=== PATIENT | male | born 1985 | race Caucasian/White ===

== ENCOUNTER 2023-03-05 09:03 | Emergency (ER) | payer OTHER, MEDICAID, SELFPAY ==
[2023-03-05 09:06] VITALS: BP 121/76; PULSE 89; RESP 16; TEMP 36.8; O2SAT 99; BMI 22.9
--- NOTE | 2023-03-05 09:11 | DI.RAD.S_ITS ---
PROCEDURE: XR RIBS LT MIN 3V W CXR1V INDICATIONS: fall mountain biking, SOB, pain on L ribs r/o pneumo TECHNIQUE: 2 views of the left ribs were acquired, along with a single view chest. COMPARISON: None. FINDINGS: Surgical changes and devices: None. Bones and chest wall: Cortical irregularity involving left anterior 6 rib is seen suggestive of minimally displaced rib fracture which corresponds to patient's reported area of pain. No other rib fracture is identified. No suspicious bony lesions. Overlying soft tissues appear unremarkable. Lungs and pleura: No pleural effusions or pneumothorax. Lungs appear clear. Mediastinum: Mediastinal contours appear normal. Heart size is normal. IMPRESSION: Subtle minimally displaced left anterior 6th rib fracture. No acute cardiopulmonary pathology. Dictated by: Lane Srinivasan M.D. on 03/05/2023 at 9:25 Approved by: Lane Srinivasan M.D. on 03/05/2023 at 9:27
--- NOTE | 2023-03-05 09:36 | ED.FALL ---
HPI - Fall General Chief Complaint: Fall Stated Complaint: polssible broken rib, sent by [employer] [place] Time Seen by Provider: 03/05/23 09:35 Source: patient and RN notes reviewed Mode of arrival: Ambulatory Limitations: no limitations History of Present Illness HPI Narrative: This is a 37-year-old male who was mountain biking on February 24, he states he took a fall his left arm was behind him and he landed on large tree root on the left side of his chest. He states it was painful but got better in a day or 2 he did have a little bit of swelling and bruising at the site that resolved after several days. States later in the week he was rolling over in bed felt sort of a pop and sudden pain at that location which has been persistently much more painful. Patient states no shortness of breath pain still present not quite as intense as when he felt the pop. Does have a history of prior broken ribs on both sides in the past in his had a pneumothorax on the left secondary to traumatic injury in the past. Denies any other injuries. States he did not hit his head no neck or back pain, no shortness of breath currently. He denies any lightheadedness passing out. Denies any other issues. Patient states no new bruising or skin changes. Related Data Previous Rx's Medication Instructions Recorded ibuprofen 800 mg tablet 800 mg PO Q8H PRN pain #60 tabs 06/29/21 lidocaine 5 % topical patch 1 patch topical DAILY #30 ea 06/29/21 Allergies Allergy/AdvReac Type Severity Reaction Status Date / Time acetaminophen [From Percocet] AdvReac Mild Vomiting Verified 03/04/23 16:50 Opioids - Morphine Analogues AdvReac Mild Vomiting Verified 03/04/23 16:50 oxycodone [From Percocet] AdvReac Mild Vomiting Verified 03/04/23 16:50 Review of Systems Review of Systems ROS Unobtainable: All systems reviewed & are unremarkable except as noted in HPI and below Patient History Medical History (Updated 03/05/23 @ 09:43 by Shanita Sinclair DO) Carpal tunnel syndrome (~2009) Contusion of rib on right side Depression PTSD (post-traumatic stress disorder) (~2015) Wears glasses Surgical History (Updated 07/16/21 @ 21:24 by Jaci York) Anesthesia H/O tooth extraction (~2006) History of foot surgery (~2014) History of right knee surgery (~2017) Social History Smoking Status: Former smoker Smoking Status: Former smoker Exam Narrative Exam Narrative: GEN: Patient appears in mild distress. HEAD: No evidence of trauma, no raccoon/Irene sign. NECK: Nontender, painless range of motion, trachea midline Negative Nexus criteria, there is no midline line tenderness, distracting injury, altered mental status, neuro deficit, recent EtOH. EYES: PERRLA, EOMI ENT: External inspection normal, trachea is midline, Nares are clear, no septal hematoma, no dental or oral injury, airway is normal and with normal occlusion, No bony tenderness RESP: Chest is is tender over the left lateral chest. No obvious deformity. And has symmetric movement, no ecchymosis, breath sounds are normal no crackles, wheezes or rales, no ecchymosis or skin changes. CVS: Heart sounds are normal, no murmur noted, No JVD. ABG/GI: Nontender, soft, normal bowel sounds, no distention, no organomegaly. Neg pelvic rock NEURO: Oriented AOx3, neuro is grossly intact, sensation and motor is normal all 4 extremities moving, cranial nerves II through XII are intact, GCS is 15 PSYCH: Normal mood and affect SKIN: Intact, warm and dry, no crepitus and without decubitus BACK: No CVA tenderness, no vertebral tenderness, no step-off's, no crepitus EXT: Atraumatic, normal range of motion of extremities, normal gait. SKIN: No rash, no erythema, no ecchymosis. Initial Vital Signs Initial Vital Signs: Vital Signs Temperature 98.3 F 03/05/23 09:06 Pulse Rate 89 03/05/23 09:06 Respiratory Rate 16 03/05/23 09:06 Blood Pressure 121/76 03/05/23 09:06 Pulse Oximetry 99 03/05/23 09:06 Oxygen Delivery Method Room Air 03/05/23 09:06 Course Orders Ordered: ED Orders 03/05/23 09:11 XR ribs LT min 3V w CXR1V Stat Vital Signs Vital signs: Vital Signs - 8 hr 03/05/23 09:06 Temperature 98.3 F Pulse Rate 89 Respiratory Rate 16 Blood Pressure 121/76 Pulse Oximetry 99 Oxygen Delivery Method Room Air MDM - Fall Imaging Data Chest x-ray: Radiologist's Impression: Close Ribs X-Ray (Signed) Lane Srinivasan - 03/05/23 Ribs X-Ray (Signed) Brennon Smith - 06/29/21 Launch?[address] [address] XRay Report Signed Patient: Tony Espino MR#: [id number] : 1985 Acct:[id number] Age/Sex: 37 / M Date of Service: 03/05/23 Loc: ED Accession Number: [id number] ?? Procedure: XR ribs LT min 3V w CXR1V Ordering Provider: Shanita Sinclair D.O. PROCEDURE:? XR RIBS LT MIN 3V W CXR1V ? INDICATIONS:? fall mountain biking, SOB, pain on L ribs r/o pneumo ? TECHNIQUE:? 2 views of the left ribs were acquired, along with a single view chest.? ? COMPARISON:? None. ? FINDINGS:? ? Surgical changes and devices:? None.? ? Bones and chest wall:? Cortical irregularity involving left anterior 6 rib is seen suggestive of minimally displaced rib fracture which corresponds to patient's reported area of pain.? No other rib fracture is identified.? No suspicious bony lesions.? Overlying soft tissues appear unremarkable.? ? Lungs and pleura:? No pleural effusions or pneumothorax.? Lungs appear clear.? ? Mediastinum:? Mediastinal contours appear normal.? Heart size is normal.? ? IMPRESSION:? Subtle minimally displaced left anterior 6th rib fracture.? No acute cardiopulmonary pathology. ? ? Dictated by: Lane Srinivasan M.D. on 03/05/2023 at 9:25 ? ? Approved by: Lane Srinivasan M.D. on 03/05/2023 at 9:27?? [facility] Narrative Medical decision making narrative: This is a 37-year-old male who was in a mountain biking accident on the 24 of February he states symptoms he had pain in the left rib region very localized for about 2 or 3 days sort of improved in the in the other morning who is rolling over in bed felt a pop and had increased pain at that location again. Patient states pain has been much stronger than it was before. He denies any new injuries. He denies any shortness of breath. He has had a history of rib fractures and had prior pneumothorax in the past. Patient's chest x-ray does appear to have a 6 very rib fracture consistent with his physical exam and reported symptoms. No signs of pneumothorax appreciated today. Patient denies any other injuries and exam overall is reassuring. Patient prefers incentive spirometer states he has 1 that he is used at home before. Defers anything additional for pain. All questions answered. Discharge Plan Departure Patient Disposition: Home Clinical Impression: Closed fracture of rib of left side Instructions: DI for Rib Fracture Activity Restrictions/Additional Instructions: You do have a fracture on the left 6th rib seen on your imaging today. You can take Tylenol up to a 1000 mg every 6 hours and/or ibuprofen up to 800 mg every 8 hours as needed for pain. Please return for new or worsening chest pain, shortness of breath, lightheadedness or passing out, new bruising or other skin changes or other new or concerning changes. Prescriptions: No Action lidocaine 5 % adhesive patch,medicated 1 patch topical DAILY Qty: 30 0RF Rx Instructions: leave on most painful area for up to 12 hrs ibuprofen 800 mg tablet 800 mg PO Q8H PRN (Reason: pain) Qty: 60 0RF Referrals: Ena Jacobs PA-C [Primary Care Provider] - Stand Alone Forms: Patient Portal/API
== END 2023-03-05 09:49 | disposition home or self-care (01) ==
PROVIDERS: Emergency Provider Emergency Medicine; PCP Physician Assistant
DX: S22.32XA Fracture of one rib, left side, initial encounter for closed fracture (principal); V18.0XXA Pedal cycle driver injured in noncollision transport accident in nontraffic accident, initial encounter; Y93.55 Activity, bike riding
CPT/HCPCS: 71101; 99282; 99284

== ENCOUNTER 2024-04-01 00:59 | Emergency (ER) | payer OTHER, MEDICAID, SELFPAY ==
--- NOTE | 2024-04-01 01:06 | ED_ITS ---
HPI - Skin/Abscess/Foreign Bdy General Chief complaint: Head Injury Stated complaint: head injury Time Seen by Provider: 04/01/24 01:01 History of Present Illness HPI narrative: 39-year-old male presents for evaluation of head injury and possible need for sutures. Patient states that he was working on a car when a struck broke off and struck him in the head. He had brief loss of consciousness. He was taken via air to [facility] where a CT was performed, reportedly negative. He states that a large trauma came in and he was told that he would have to wait several hours for sutures to be done. He decided that he did not want to wait and so he came to our emergency department to get sutures for his forehead wound. Last tetanus update less than 3 years ago Related Data Home Medications Medication Instructions Recorded Confirmed cyclobenzaprine 5 mg tablet See Rx Instructions PO TID painful 03/09/24 muscle spasms duloxetine 20 mg capsule,delayed 20 mg PO ONCE 03/09/24 03/09/24 release sprinkle Allergies Allergy/AdvReac Type Severity Reaction Status Date / Time acetaminophen [From Percocet] AdvReac Mild Vomiting Verified 04/01/24 01:09 Opioids - Morphine Analogues AdvReac Mild Vomiting Verified 04/01/24 01:09 oxycodone [From Percocet] AdvReac Mild Vomiting Verified 04/01/24 01:09 Patient History Medical History PTSD (post-traumatic stress disorder) (~2015) Depression Carpal tunnel syndrome (~2009) Surgical History Anesthesia History of foot surgery (~2014) History of right knee surgery (~2016) H/O tooth extraction (~2006) Social History Smoking Status: Current every day smoker Smoking Status: Current every day smoker Exam Initial Vital Signs Initial Vital Signs: Vital Signs Temperature 97.4 F L 04/01/24 01:09 Pulse Rate 78 04/01/24 01:09 Respiratory Rate 17 04/01/24 01:09 Blood Pressure 152/99 H 04/01/24 01:09 Pulse Oximetry 99 04/01/24 01:09 Oxygen Delivery Method Room Air 04/01/24 01:09 Const: Awake, alert, no acute distress, nontoxic appearing Head: Contusion center forehead, No deformity noted Skin: Warm, Dry, 3cm horizontal laceration center forehead, superficial to deeper depth Neuro: AO x3, CN II-XII grossly intact, moves all extremities Procedures Laceration Repair Laceration 1: Site: face Size (cm): 3 Description: linear Depth: simple, single layer Local Anesthetic: lidocaine 1% and with epi Amount of anesthesia used (mL): 2 Pre-repair: wound explored and irrigated extensively Skin layer closed with: nylon Skin layer suture size: 5-0 Number of sutures: 4 Technique: simple, interrupted Course Orders Ordered: Discontinued Medications Lidocaine/Epinephrine (Lidocaine 1% W/Epi) 4 ml INJ INTRA-OP ONE Stop: 04/01/24 01:07 Last Admin: 04/01/24 01:10 Dose: 4 ml Documented By: TYSHAWN Vital Signs Vital signs: Vital Signs - 8 hr 04/01/24 01:09 Temperature 97.4 F L Pulse Rate 78 Respiratory Rate 17 Blood Pressure 152/99 H Pulse Oximetry 99 Oxygen Delivery Method Room Air MDM - Skin/Abscess/Foreign Bdy MDM Narrative Medical decision making narrative: Patient presenting for sutures for his forehead laceration. Reports that he has already had a negative CT at outside hospital. Wound cleaned, repaired per procedure note. Discharge Plan Departure Patient Disposition: Home Clinical Impression: Forehead laceration Instructions: DI for Laceration Repair -- Simple Activity Restrictions/Additional Instructions: Expect that your forehead and the area under your eyes will be bruised tomorrow. Apply ice to areas of swelling. Take Tylenol and ibuprofen as needed for pain. Sutures will need to be removed in 3-5 days. If you notice redness, drainage, abnormal swelling please return for repeat evaluation. Prescriptions: No Action duloxetine 20 mg capsule, delayed rel sprinkle 20 mg PO ONCE cyclobenzaprine 5 mg tablet See Rx Instructions PO TID Rx Instructions: 1 to 2 tabs orally three times a day; Do not drive if taking this medication. Referrals: Ena Jacobs PA-C [Primary Care Provider] - Stand Alone Forms: Patient Portal/API
[2024-04-01 01:09] VITALS: BP 152/99; PULSE 78; RESP 17; TEMP 36.3; O2SAT 99; BMI 23.6
[2024-04-01] MEDS: LIDOCAINE 1% W/EPI 4 ML INJ (01:10)
--- NOTE | 2024-04-01 01:27 | PC.NURSE ---
patient has a well approximated 3cm laceration on center of forehead. Cleansed with NS and patient has minimal bleeding. Dr. Pineda now in room.
== END 2024-04-01 01:46 | disposition home or self-care (01) ==
PROVIDERS: Emergency Provider Emergency Medicine; PCP Physician Assistant
DX: S01.81XA Laceration without foreign body of other part of head, initial encounter (principal); W20.8XXA Other cause of strike by thrown, projected or falling object, initial encounter
CPT/HCPCS: 12013; 99282; 99283

== ENCOUNTER 2024-08-03 18:36 | Emergency (ER) | payer OTHER, MEDICAID, SELFPAY ==
[2024-08-03 18:44] VITALS: BP 134/76; PULSE 88; RESP 16; TEMP 36.9; O2SAT 99; BMI 24.0
--- NOTE | 2024-08-03 18:55 | DI.RAD.S_ITS ---
PROCEDURE: XR HAND LT MIN 3V INDICATIONS: fall/injury TECHNIQUE: 3 views of the hand(s) acquired. COMPARISON: None. FINDINGS: Bones: No fractures or dislocations. Carpal bones are normally aligned. No suspicious bony lesions. Soft tissues: Significant dorsal soft tissue swelling is seen. No suspicious soft tissue calcifications. IMPRESSION: Dorsal left hand soft tissue swelling. No gross acute left hand fracture or dislocation. Dictated by: Lane Srinivasan M.D. on 08/03/2024 at 19:23 Approved by: Lane Srinivasan M.D. on 08/03/2024 at 19:23
--- NOTE | 2024-08-03 18:55 | DI.RAD.S_ITS ---
PROCEDURE: XR WRIST LT MIN 3V INDICATIONS: fall/injury TECHNIQUE: 4 views of the wrist were acquired. COMPARISON: [facility] ([place]), CR, XR WRIST LT MIN 3V, 11/27/2023, 13:50. FINDINGS: Bones: No fractures or dislocations. No suspicious bony lesions. Soft tissues: No suspicious soft tissue calcifications. IMPRESSION: No gross acute left wrist fracture or dislocation. Dictated by: Lane Srinivasan M.D. on 08/03/2024 at 19:23 Approved by: Lane Srinviasan M.D. on 08/03/2024 at 19:24
[2024-08-03 23:01] VITALS: BP 139/84; PULSE 72; RESP 18; TEMP 36.9; O2SAT 95
--- NOTE | 2024-08-04 01:26 | PC.NURSE ---
called pt for room, no answer unable to locate pt in waiting room area
--- NOTE | 2024-08-04 01:53 | ED_ITS ---
HPI - Fall General Chief Complaint: Fall Stated Complaint: Fall, hand and back injury Time Seen by Provider: 08/04/24 02:18 Mode of arrival: Ambulatory History of Present Illness HPI Narrative: 39-year-old male states that he was working this afternoon and fell backwards, hands raised upright, smacked the back of his left hand onto flat surface, also had exacerbation of this chronic left back pain. No numbness or tingling to lower extremities. No incontinence of urine or stool. No head injuries. No neck pain. No chest abdomen and pelvis pain. He has not been taking any medications. Regarding his back pain knee as apparently had some kind of injury in [place] in the distant past, treated with various medications, apparently not any surgical interventions, subsequently had follow up with [facility] in [place], reports CT scanning of the lumbar spine, consultation with Neurosurgery, no injections although this had been discussed, no MRI study, now planning to switch his primary care provider and pursue alternate neurosurgery consultation. Related Data Home Medications Medication Instructions Recorded Confirmed cyclobenzaprine 5 mg tablet See Rx Instructions PO TID painful 03/09/24 04/06/24 muscle spasms duloxetine 20 mg capsule,delayed 20 mg PO ONCE 03/09/24 04/06/24 release sprinkle Previous Rx's Medication Instructions Recorded methocarbamol 500 mg tablet 500 mg PO TID 7 days #21 tabs 08/04/24 naproxen 500 mg tablet 500 mg PO BID 7 days #14 tabs 08/04/24 Allergies Allergy/AdvReac Type Severity Reaction Status Date / Time acetaminophen [From Percocet] AdvReac Mild Vomiting Verified 04/06/24 11:38 Opioids - Morphine Analogues AdvReac Mild Vomiting Verified 04/06/24 11:38 oxycodone [From Percocet] AdvReac Mild Vomiting Verified 04/06/24 11:38 Review of Systems Review of Systems Narrative: see HPI Patient History Medical History PTSD (post-traumatic stress disorder) (~2015) Depression Carpal tunnel syndrome (~2009) Surgical History Anesthesia History of foot surgery (~2014) History of right knee surgery (~2016) H/O tooth extraction (~2006) Social History Smoking Status: Current every day smoker Smoking Status: Current every day smoker tobacco type: cigarettes Exam Narrative Exam Narrative: GENERAL: Well-developed patient, in mild distress. HEAD: Atraumatic. Normocephalic. EYES: Pupils equal round and reactive. Extraocular motions intact. No scleral icterus. No injection or drainage. ENT: Nose without bleeding, purulent drainage. Throat without erythema, tonsillar hypertrophy or exudate. Airway patent. NECK: Trachea midline. Non tender CARDIOVASCULAR: Regular rate and rhythm without murmurs, gallops, or rubs. RESPIRATORY: Clear to auscultation. Breath sounds equal bilaterally. No wheezes, rales, or rhonchi. GASTROINTESTINAL: Abdomen soft, non-tender, nondistended. EXTREMITIES: Swelling to dorsal aspect of left hand. Can move fingers, limited flexion. No lacerations or abrasion. Mild tenderness also to left wrist without gross deformity. BACK: Left mid lumbar paraspinous muscle tenderness with some spasm, no midline lumbar spine tenderness however mid upper or lower lumbar, nor thoracic. No flank area tenderness or bruising. No skin changes or redness or warmth. NEURO: AOx3. Motor functions grossly nonfocal. Straight leg raise 45-degrees bilaeral when supine, no increased back pain or any leg pain symptoms SKIN: No rash or erythema of visible areas Initial Vital Signs Initial Vital Signs: Vital Signs Temperature 98.4 F 08/03/24 18:44 Pulse Rate 88 08/03/24 18:44 Respiratory Rate 16 08/03/24 18:44 Blood Pressure 134/76 08/03/24 18:44 Pulse Oximetry 99 08/03/24 18:44 Oxygen Delivery Method Room Air 08/03/24 18:44 Course Orders Ordered: Discontinued Medications Methocarbamol (Methocarbamol 500 Mg Tablet) 500 mg PO NOW ONE Stop: 08/04/24 02:08 Last Admin: 08/04/24 02:16 Dose: 500 mg Documented By: TYSHAWN Naproxen (Naproxen 250 Mg Tablet) [facility] Naproxen (Naproxen 250 Mg Tablet) 500 mg PO NOW ONE Stop: 08/04/24 02:19 Last Admin: 08/04/24 02:24 Dose: 500 mg Documented By: TYSHAWN Vital Signs Vital signs: Vital Signs - 8 hr 08/03/24 18:44 08/03/24 23:01 Temperature 98.4 F 98.5 F Pulse Rate 88 72 Respiratory Rate 16 18 Blood Pressure 134/76 139/84 Pulse Oximetry 99 95 Oxygen Delivery Method Room Air Room Air MDM - Fall Imaging Data Extremity x-ray #1: Radiologist's Impression: Close Hand X-Ray (Signed) Lane Srinivasan - 08/03/24 Wrist X-Ray (Signed) Lane Srinivasan - 08/03/24 Launch?[address] [address] XRay Report Signed Patient: Tony Espino MR#: [id number] : 1985 Acct:[id number] Age/Sex: 39 / M Date of Service: 08/03/24 Loc: ED Accession Number: [id number] Procedure: XR hand LT min 3V Ordering Provider: Davon Brandon MD PROCEDURE: XR HAND LT MIN 3V INDICATIONS: fall/injury TECHNIQUE: 3 views of the hand(s) acquired. COMPARISON: None. FINDINGS: Bones: No fractures or dislocations. Carpal bones are normally aligned. No suspicious bony lesions. Soft tissues: Significant dorsal soft tissue swelling is seen. No suspicious soft tissue calcifications. IMPRESSION: Dorsal left hand soft tissue swelling. No gross acute left hand fracture or dislocation. Dictated by: Lane Srinivasan M.D. on 08/03/2024 at 19:[address]: [address] Srinivasan M.D. on 08/03/2024 at 19:23 Extremity x-ray #2: Radiologist's Impression: Close Hand X-Ray (Signed) Lane Srinivasan - 08/03/24 Wrist X-Ray (Signed) Lane Srinivasan - 08/03/24 Launch?[address] [address] XRay Report Signed Patient: Tony Espino MR#: [id number] : 1985 Acct:[id number] Age/Sex: 39 / M Date of Service: 08/03/24 Loc: ED Accession Number: [id number] Procedure: XR wrist LT min 3V Ordering Provider: Davon Brandon MD PROCEDURE: XR WRIST LT MIN 3V INDICATIONS: fall/injury TECHNIQUE: 4 views of the wrist were acquired. COMPARISON: [facility] ([place]), CR, XR WRIST LT MIN 3V, 11/27/2023, 13:50. FINDINGS: Bones: No fractures or dislocations. No suspicious bony lesions. Soft tissues: No suspicious soft tissue calcifications. IMPRESSION: No gross acute left wrist fracture or dislocation. Dictated by: Lane Srinivasan M.D. on 08/03/2024 at 19:[address]: [address] Srinivasan M.D. on 08/03/2024 at 19:24 [facility] Narrative Medical decision making narrative: 39-year-old male with left dorsal hand and wrist pain after fall work injury, exacerbation of left lumbar chronic back pain. Some tenderness to mid lumbar area, but not in the midline region. We discussed CT lumbar spine imaging, declined for now. No MRI lumbar spine imaging available now, no neuro deficits obvious. Left Velcro wrist splint. Oral naproxen. Oral Robaxin dispensed now, to take once he gets home as he is driving. Prescriptions for naproxen and Robaxin sent to home [facility] pharmacy. Follow up with new PCP as planned. Follow up with new Neurosurgery as planned. Contact information also provided for local spine surgeon Dr. Jean if needed, though he might require referral from primary care. Return precautions discussed. Discharge Plan Departure Patient Disposition: Home Clinical Impression: Contusion of hand, left, Sprain and strain of left wrist, Lumbar strain Activity Restrictions/Additional Instructions: Fall and work injury report earlier today, with subsequent dorsal left hand swelling and pain, also left wrist pain. X-rays of the left hand and wrist negative for x-rays per radiology reports at this time. Left wrist placed in splint to immobilize wrist and hand areas. Keep elevated. Consider local cold/ice application to reduce the swelling. Consider use of naproxen anti- inflammatory pain medication, 1st dose in the emergency department, further doses in your pharmacy were sent electronically. You describe chronic low back pain ongoing, in process of change of primary care provider, and likely change in possible neurosurgical consultation, most recently having been evaluated at [facility], reporting prior CT imaging lumbar spine but no MRI imaging lumbar spine. No neurosurgical intervention so far. Unfortunately with this fall you had increased low back pain. On examination however you do not seem to have any tenderness along the midline at this time. We did discuss CT imaging tonight, hold for now. You seemed to have tenderness mid lumbar paraspinous musculature, not in the midline. Trial of muscle relaxant for now for lumbar strain. First dose Robaxin/methocarbamol now dispensed, to take once your at-home since your driving, then further as needed sent to your pharmacy on [facility] for pickup tomorrow. Recheck with your new primary care provider. Contact information also provided for local spine surgeon in [place] Dr. Jean if needed, though you might require primary care provider referral. Return earlier to this/nearest emergency department for any change worsening symptoms or any concerns prior Prescriptions: New methocarbamol 500 mg tablet 500 mg PO TID 7 Days Qty: 21 0RF naproxen 500 mg tablet 500 mg PO BID 7 Days Qty: 14 0RF No Action duloxetine 20 mg capsule, delayed rel sprinkle 20 mg PO ONCE cyclobenzaprine 5 mg tablet See Rx Instructions PO TID Rx Instructions: 1 to 2 tabs orally three times a day; Do not drive if taking this medication. Referrals: Bryan Jean MD [Physician] - Sidra Denise DO [Primary Care Provider] - Stand Alone Forms: Patient Portal/API/Survey
[2024-08-04] MEDS: methocarbamoL 500 MG TABLET PO (02:16)
[2024-08-04 02:24] VITALS: BP 134/91; PULSE 78; RESP 18; O2SAT 99
[2024-08-04] MEDS: NAPROXEN 250 MG TABLET 500 MG PO (02:24)
== END 2024-08-04 02:26 | disposition home or self-care (01) ==
PROVIDERS: Emergency Provider Emergency Medicine; PCP Family Medicine
DX: S60.222A Contusion of left hand, initial encounter (principal); S66.912A Strain of unspecified muscle, fascia and tendon at wrist and hand level, left hand, initial encounter; S63.502A Unspecified sprain of left wrist, initial encounter; S39.012A Strain of muscle, fascia and tendon of lower back, initial encounter; W01.198A Fall on same level from slipping, tripping and stumbling with subsequent striking against other object, initial encounter
CPT/HCPCS: 73110; 73130; 99283

== ENCOUNTER 2024-09-02 18:24 | Emergency (ER) | payer OTHER, SELFPAY ==
[2024-09-02] VITALS (9 sets, daily range): BP systolic 142–162; BP diastolic 94–103; PULSE 73–104; RESP 16–18; TEMP 36.9; O2SAT 97–99; BMI 24.3
--- NOTE | 2024-09-02 21:50 | ED.UPPEXIN ---
HPI - Extremity Injury (Upper) General Chief Complaint: Extremity Injury, Upper Stated Complaint: Returning; L Hand Injury Time Seen by Provider: 09/02/24 20:55 History of Present Illness HPI narrative: 39-year-old right-hand dominant male presents for evaluation of left hand weakness. Patient was seen in the emergency department 08/04 after injuring his left hand. He underwent x-ray imaging, which was negative. He states that as the month has progressed his left hand has become weaker. 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 He says he feels like there is something swollen between his index and middle finger knuckles on the left-hand side. Reports a tingling/numbness sensation in the tips of his thumb, index, middle fingers. Related Data Home Medications Medication Instructions Recorded Confirmed cyclobenzaprine 5 mg tablet See Rx Instructions PO TID painful 03/09/24 04/06/24 muscle spasms duloxetine 20 mg capsule,delayed 20 mg PO ONCE 03/09/24 04/06/24 release sprinkle Allergies Allergy/AdvReac Type Severity Reaction Status Date / Time acetaminophen [From Percocet] AdvReac Mild Vomiting Verified 04/06/24 11:38 Opioids - Morphine Analogues AdvReac Mild Vomiting Verified 04/06/24 11:38 oxycodone [From Percocet] AdvReac Mild Vomiting Verified 04/06/24 11:38 Patient History Medical History PTSD (post-traumatic stress disorder) (~2015) Depression Carpal tunnel syndrome (~2009) Surgical History Anesthesia History of foot surgery (~2014) History of right knee surgery (~2016) H/O tooth extraction (~2006) Social History Smoking Status: Current every day smoker Smoking Status: Current every day smoker tobacco type: cigarettes Exam Initial Vital Signs Initial Vital Signs: Vital Signs Temperature 98.4 F 09/02/24 18:31 Pulse Rate 104 H 09/02/24 18:31 Respiratory Rate 16 09/02/24 18:31 Blood Pressure 162/103 H 09/02/24 18:31 Pulse Oximetry 98 09/02/24 18:31 Oxygen Delivery Method Room Air 09/02/24 18:31 Const: Awake, alert, no acute distress, nontoxic appearing MSK: Atraumatic, dipper operator strength L hand decreased compared to L hand. Unable to fully spread L fingers. Able to flex/extend all fingers equally. Capillary refill <2 seconds. No obvious swelling present Skin: Warm, Dry, intact, no rashes Neuro: AO x3, CN II-XII grossly intact, Bicep/tricep strength in bilateral arms 5/5, equal Course Orders Ordered: ED Orders 09/02/24 21:49 XR hand LT min 3V Stat Vital Signs Vital signs: Vital Signs - 8 hr 09/02/24 23:30 Pulse Rate 80 Respiratory Rate 16 Blood Pressure 142/99 H Pulse Oximetry 98 [facility] - Extremity Injury (Upper) Imaging Data Extremity x-ray #1: Radiologist's Impression: PROCEDURE: XR HAND LT MIN 3V INDICATIONS: L HAND INJ 1 MO AGO, WORSENING PAIN TECHNIQUE: 3 views of the hand(s) acquired. COMPARISON: [facility], , XR HAND LT MIN 3V, 08/03/2024, 18:58. FINDINGS: Bones: No fractures or dislocations. Carpal bones are normally aligned. No suspicious bony lesions. Soft tissues: No suspicious soft tissue calcifications. IMPRESSION: No acute left hand fracture or dislocation. No signs of healing fractures. No gross soft tissue abnormalities. Dictated by: Lane Srinivasan M.D. on 09/02/2024 at 22:42 Appro[address] by: Lane Srinivasan M.D. on 09/02/2024 at 22:43 [facility] Narrative Medical decision making narrative: Injury to left-hand 1 month ago, gradually worsening weakness and decreased dipper operator strength. On exam patient does have decreased dipper operator strength in the left hand compared to the right hand. Seems peripheral in etiology - isolated to beyond the wrist. He does have the ability to flex and extend all of his fingers, however fine motor seems to be somewhat decreased on the left-hand side compared to the right-hand side. Capillary refill less than 2 seconds in all fingers and equal to the right-hand. Repeat x-ray shows no acute findings. Patient was concerned that there may be something swollen on the dorsum of his left hand, however I do not appreciate any abnormal masses, lesions, or other abnormalities. Case discussed with hand surgery resident Dr. Doss at [facility]. She states that patient can follow up outpatient in their clinic. Patient states that under no circumstances is he going to [facility] as ?I do not trust them?. He requested a more local referral. Options are limited in [place], but the number to local orthopedic surgery was given to patient for follow up if he desires. Patient was counseled that he should follow up with a hand surgeon for further monitoring of his hand weakness Discharge Plan Departure Patient Disposition: Home Clinical Impression: Left hand weakness Instructions: DI for Hand Injury Activity Restrictions/Additional Instructions: Wear your wrist brace for stabilization. Follow up with ortho hand for your continued hand weakness. Prescriptions: No Action duloxetine 20 mg capsule, delayed rel sprinkle 20 mg PO ONCE cyclobenzaprine 5 mg tablet See Rx Instructions PO TID Rx Instructions: 1 to 2 tabs orally three times a day; Do not drive if taking this medication. Referrals: Jens Acosta MD [Physician] - Sidra Denise DO [Primary Care Provider] - Stand Alone Forms: Patient Portal/API/Survey
== END 2024-09-02 23:55 | disposition home or self-care (01) ==
PROVIDERS: Emergency Provider Emergency Medicine; PCP Family Medicine
DX: R53.1 Weakness (principal); R20.0 Anesthesia of skin; R20.2 Paresthesia of skin
CPT/HCPCS: 73130; 99281; 99283

== ENCOUNTER 2024-09-05 00:43 | Emergency (ER) | payer OTHER, SELFPAY ==
[2024-09-05 01:02] VITALS: BP 160/100; PULSE 101; RESP 17; TEMP 36.7; O2SAT 98; BMI 22.9
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
[2024-09-05 01:56] VITALS: BP 132/73; PULSE 102; RESP 17; O2SAT 98
[2024-09-05] MEDS: CYCLOBENZAPRINE 10 MG TABLET 5 MG PO (02:20)
[2024-09-05] MEDS: KETOROLAC 30 MG/ML VIAL IM (02:20)
[2024-09-05] MEDS: diphenhydrAMINE 50 MG/ML VIAL 25 MG IV (03:16)
[2024-09-05] MEDS: METOCLOPRAMIDE 10 MG/2 ML INJ IV (03:17)
[2024-09-05] MEDS: SODIUM CHLORIDE 0.9% 1,000 ML 1000 ML IV (03:17)
[2024-09-05 04:11] VITALS: BP 121/69; PULSE 70; RESP 16; O2SAT 98
== END 2024-09-05 04:12 | disposition home or self-care (01) ==
PROVIDERS: Emergency Provider Emergency Medicine; PCP Family Medicine
DX: R51.9 Headache, unspecified (principal); M54.2 Cervicalgia; H53.9 Unspecified visual disturbance
CPT/HCPCS: 36415; 70450; 96361; 96372; 96374; 96375; 99284; J1200; J1885; J2765

== ENCOUNTER → 2024-10-14 16:35 | Outpatient (CLI) | payer OTHER, SELFPAY ==
--- NOTE | 2024-10-14 16:37 | DI.MRI.S_ITS ---
PROCEDURE: MR HAND LT WO CON INDICATIONS: ENTRAPMENT NEUROPATHY OF PERIPHERAL NERVE L HAND TECHNIQUE: Noncontrast coronal T1 spin echo and T2 fast spin echo with fat saturation, axial proton density fast spin echo and T2 fast spin echo with fat saturation, sagittal T1 spin echo and STIR through the hand and fingers. COMPARISON: [facility], CR, XR HAND LT MIN 3V, 09/02/2024, 21:49. FINDINGS: Image quality: Excellent. Bones: Nonspecific osseous edema is seen throughout the 3rd and 4th metatarsals from base to metatarsal head. There is mild osseous edema is also seen within the 3rd and 4th proximal phalanges. Mild edema within the 2nd metacarpal head and proximal phalangeal head. No acute fracture line is seen. Soft tissues: Visualized flexor and extensor tendons are intact. Visualized muscles demonstrate normal bulk and internal signal. No intramuscular masses identified. No ganglion cysts. No signs of acute or chronic denervation changes identified. IMPRESSION: Nonspecific osseous edema in the 3rd and 4th metacarpals and proximal phalanges and to a lesser extent the 2nd metacarpal head and 2nd proximal phalangeal head. Appearance is nonspecific may be secondary to resolving contusions in the setting of prior trauma. No acute or chronic denervation changes are seen. Approved by: Derrick Ray M.D. on 10/16/2024 at 13:36
== END ==
PROVIDERS: PCP Family Medicine; Referring Provider Physician Assistant Surgical; Visit Provider Physician Assistant Surgical
DX: G56.92 Unspecified mononeuropathy of left upper limb (principal); M25.442 Effusion, left hand
CPT/HCPCS: 73218

== ENCOUNTER → 2024-10-20 09:18 | Outpatient (CLI) | payer OTHER, SELFPAY ==
--- NOTE | 2024-10-20 09:19 | DI.MRI.S_ITS ---
PROCEDURE: MR HEAD/BRAIN WO CON INDICATIONS: Lump on back of head TECHNIQUE: Noncontrast axial T1 spin echo, axial T2 fast spin echo, sagittal and axial FLAIR, coronal T2 fast spin echo, axial gradient echo, axial diffusion and ADC through the brain. COMPARISON: [facility], CT, CT HEAD/BRAIN WO CON, 09/05/2024, 1:06. FINDINGS: CSF Spaces: Basal cisterns are patent. No extra-axial fluid collections. Ventricles are normal in size and shape. Brain: No intracranial masses or hemorrhage. Davies/white matter interface is normal. Brainstem appears normal. Diffusion-weighted sequence is unremarkable without evidence of acute infarct. Normal intravascular flow voids are present. Nonspecific white matter hyperintensities in the bilateral deep and subcortical white matter measure up to 5 mm Skull and face: Calvarium has normal marrow signal. Orbits appear normal. Sinuses: Sinuses and mastoids are clear. IMPRESSION: Nonspecific white matter hyperintensities. Differential includes early chronic ischemia, migrainous vasculopathy, vasculitis and sequelae of prior trauma or inflammatory event. Unremarkable scalp and calvarium. No MR correlate to palpable abnormality Approved by: Frank Higgins M.D. on 10/20/2024 at 16:49
== END ==
PROVIDERS: PCP Family Medicine; Referring Provider Family Medicine; Visit Provider Family Medicine
DX: S19.9XXS Unspecified injury of neck, sequela (principal); R51.9 Headache, unspecified; G89.29 Other chronic pain; Z87.81 Personal history of (healed) traumatic fracture; Z87.828 Personal history of other (healed) physical injury and trauma; Z78.9 Other specified health status; Z98.890 Other specified postprocedural states
CPT/HCPCS: 70551

== ENCOUNTER 2025-03-14 17:50 | Emergency (ER) | payer OTHER, SELFPAY ==
[2025-03-14] VITALS (11 sets, daily range): BP systolic 110–141; BP diastolic 70–99; PULSE 63–76; RESP 14; TEMP 36.7–37.2; O2SAT 95–100; BMI 24.3
[2025-03-14] MEDS: PROPARACAINE 0.5% OPHTH SOL 1 DROPS EYE-RIGHT (18:15)
[2025-03-14] MEDS: FLUORESCEIN 1 MG STRIP EYE-RIGHT (18:16)
--- NOTE | 2025-03-14 20:02 | PC.NURSE ---
SKIN INSTALLER notes: Patient's pulse oximeter was beeping. I went to put it on pt. Patient had taken off his blood pressure cuff and oximeter. Patient said he didn't want any of it on. Patient said I'm here for eye stuff, I don't need this shit.
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
[2025-03-14] MEDS: ERYTHROMYCIN OPHTH 1 GM OINT 1 APPLIC EYE-RIGHT (20:18)
[2025-03-14] MEDS: IBUPROFEN 400 MG TABLET PO (20:18)
[2025-03-14] MEDS: KETOROLAC 0.5% OPHTH DROPS 5 ML 1 DROPS EYE-RIGHT (20:18)
[2025-03-14] MEDS: ACETAMINOPHEN 325 MG TABLET PO (20:19)
== END 2025-03-14 20:23 | disposition home or self-care (01) ==
PROVIDERS: Emergency Provider Emergency Medicine; PCP Family Medicine
DX: T15.91XA Foreign body on external eye, part unspecified, right eye, initial encounter (principal)
CPT/HCPCS: 99283